=== PATIENT | female | born 1950 | race Caucasian/White ===

== ENCOUNTER 2018-01-10 01:33 | Emergency (ER) | payer MEDICARE ==
[~2018-01-10] VITALS: Ht 175.3 cm; Wt 72.6 kg
[~2018-01-10 01:33] MED LIST: ALPR0.5T PO; ATE50T PO; CYCL1TAB18 PO; LEVO150T10 PO; NOR10T PO; SULF400T11 PO; TRAZ150T79 PO
[2018-01-10 02:53] LABS: Basophils # (auto) 0 uL; Basophils % (auto) 0.1 % (0.0-2.0); Eosinophils # (auto) 0 uL; Eosinophils % (auto) 0.1 % (0.0-7.0); Hematocrit 34.3 % (36.0-46.0); Hemoglobin 10.9 g/dL (12.2-16.2); Lymphocytes # (auto) 0.9 uL; Lymphocytes % (auto) 7.5 % (10.0-50.0); Mean Corpuscular Hgb Conc. 31.9 g/dL (32.0-36.0); Mean Corpuscular Volume 87.9 fL (80.0-100.0); Monocytes # (auto) 0.6 uL; Monocytes % (auto) 4.6 % (0.0-12.0); Neutrophils # (auto) 10.8 uL; Neutrophils % (auto) 87.7 % (37.0-80.0); Platelet Count (auto) 292 10^3/uL (140-450); Red Cell Distribution Width 15.8 % (11.8-14.3); White Blood Cell 12.3 10^3/uL (4.4-10.8)
[2018-01-10] MEDS ORDERED: SODIUM CHLORIDE 0.9% 1,000 ML IV ONE ×2 (03:00→07:31)
[2018-01-10 03:12] LABS: Albumin 3.9 g/dL (3.4-5.0); Anion Gap 6 (5-15); Blood Alcohol < 3.0 mg/dL (0-5); Blood Urea Nitrogen 28 mg/dL (7-18); Calcium 8.7 mg/dL (8.5-10.1); Carbon Dioxide 30 mmol/L (21-32); Chloride 101 mmol/L (98-107); Glucose 111 mg/dL (74-106); Magnesium 2.4 mg/dL (1.6-2.6); Potassium 4.8 mmol/L (3.5-5.1); Sodium 137 mmol/L (136-145)
[2018-01-10 03:18] LABS: Alanine Aminotransferase 20 U/L (13-56); Alkaline Phosphatase 62 U/L (45-117); Aspartate Aminotransferase 9 U/L (15-37); BUN/Creatinine Ratio 15.5; Bilirubin, Total 0.3 mg/dL (0.2-1.0); GFR African American 36 mL/min; GFR Non-African American 29 mL/min; Total Protein 7.2 g/dL (6.4-8.2)
[2018-01-10] MEDS ORDERED: NALOXONE HCL 1MG/ML 2ML SYRINGE IV ONE ×2 (04:00→14:15)
[2018-01-10 11:23] LABS: Urine Bacteria FEW /hpf (None Seen); Urine Blood Negative /uL (Negative); Urine Hyaline Cast MANY /lpf (0 - 2); Urine Mucus FEW (None Seen); Urine Specific Gravity 1.026 (1.001-1.035); Urine WBC 11 /hpf (0 - 5)
[2018-01-10 11:31] LABS: Alcohol, Urine < 3.0 mg/dL (0-5); Amphetamine Screen, Urine NEGATIVE (NEGATIVE); Barbiturate Scree,Urine NEGATIVE (NEGATIVE); Benzodiazephine Screen, Urine NEGATIVE (NEGATIVE); Cannabinoid Screen, Urine POSITIVE (NEGATIVE); Cocaine Screen, Urine NEGATIVE (NEGATIVE); Opiate Scree,Urine POSITIVE (NEGATIVE); Phencyclidine Screen, Urine NEGATIVE (NEGATIVE)
[2018-01-10] MEDS ORDERED: cefTRIAXone 1GM/50ML D5W 50 ML IV ONE (11:45)
[2018-01-10 16:30] VITALS: BP 164/88
== END 2018-01-10 18:07 | disposition home or self-care (01) ==
LOC: EDBD 01:33 → ER 01:49
DX: T40.601A Poisoning by unspecified narcotics, accidental (unintentional), initial encounter (principal); I12.9 Hypertensive chronic kidney disease with stage 1 through stage 4 chronic kidney disease, or unspecified chronic kidney disease; N18.4 Chronic kidney disease, stage 4 (severe); N39.0 Urinary tract infection, site not specified; G89.4 Chronic pain syndrome; J44.9 Chronic obstructive pulmonary disease, unspecified; E07.9 Disorder of thyroid, unspecified; F17.210 Nicotine dependence, cigarettes, uncomplicated; Z90.710 Acquired absence of both cervix and uterus; Z79.899 Other long term (current) drug therapy; Z87.442 Personal history of urinary calculi; Y92.89 Other specified places as the place of occurrence of the external cause
CPT/HCPCS: 36415; 70450; 71046; 74176; 80053; 80307; 80320; 81001; 83735; 83880; 84443; 84484; 85025; 93005; 94761; 96361; 96365; 96375; 99284; J0696; J2310; J7030

== ENCOUNTER 2018-01-11 15:30 | Inpatient (IN) | payer MEDICARE ==
[~2018-01-11] VITALS: Ht 170.2 cm; Wt 85.0 kg
[2018-01-11] MEDS ORDERED: EPINEPHrine HCL 1 MG/10 ML SYRG IV ONE (15:34)
[2018-01-11] MEDS ORDERED: ATROPINE SULF 1 MG/10ml SYR IV ONE ×2 (15:34→16:45)
[2018-01-11] MEDS ORDERED: SUCCINYLCHOLINE CHLORIDE 20 MG/ML 10ML VIAL IV ONE ×2 (15:35→15:36)
[2018-01-11] MEDS ORDERED: ETOMIDATE (2MG/ML) 20ML VIAL IV ONE ×2 (15:35→15:36)
[2018-01-11] MEDS ORDERED: MIDAZOLAM DRIP 50 mg/50mL 50 ML IV ONE (15:37)
[2018-01-11] MEDS ORDERED: NOREPINEPHRINE 8 MG/250ML KIT 250 ML IV ONE (15:44)
[2018-01-11] MEDS: MIDAZOLAM DRIP 50 mg/50mL 50 ML IV SCH (15:44)
[2018-01-11] MEDS ORDERED: SODIUM CHLORIDE 0.9% 2,000 ML IV ONE (15:45)
[2018-01-11] MEDS: NOREPINEPHRINE 8 MG/250ML KIT 250 ML IV SCH (15:45)
[2018-01-11] MEDS ORDERED: NALOXONE HCL 1MG/ML 2ML SYRINGE ONE (15:56)
[2018-01-11] MEDS ORDERED: NALOXONE HCL 1MG/ML 2ML SYRINGE IV ONE (15:58)
[2018-01-11] MEDS ORDERED: cefTRIAXone 1GM/50ML D5W 50 ML IV ONE ×2 (16:00→16:20)
[2018-01-11] MEDS ORDERED: ATROPINE SULF 0.5 MG/5ML SYR ONE (16:41)
[2018-01-11 16:43] LABS: Basophils # (auto) 0.1 uL; Basophils % (auto) 0.3 % (0.0-2.0); Eosinophils # (auto) 0.1 uL; Eosinophils % (auto) 0.4 % (0.0-7.0); Hematocrit 30.1 % (36.0-46.0); Hemoglobin 9.5 g/dL (12.2-16.2); Lymphocytes # (auto) 1.5 uL; Lymphocytes % (auto) 7.3 % (10.0-50.0); Mean Corpuscular Hemoglobin 28.4 pg (28.0-32.0); Mean Corpuscular Hgb Conc. 31.4 g/dL (32.0-36.0); Mean Corpuscular Volume 90.3 fL (80.0-100.0); Monocytes # (auto) 0.9 uL; Monocytes % (auto) 4.2 % (0.0-12.0); Neutrophils # (auto) 18.2 uL; Neutrophils % (auto) 87.8 % (37.0-80.0); Platelet Count (auto) 275 10^3/uL (140-450); Red Blood Cells 3.34 10^6/uL (4.0-5.20); Red Cell Distribution Width 16.2 % (11.8-14.3); White Blood Cell 20.7 10^3/uL (4.4-10.8)
[2018-01-11 16:52] LABS: Alanine Aminotransferase 72 U/L (13-56); Albumin 2.8 g/dL (3.4-5.0); Anion Gap 21 (5-15); Aspartate Aminotransferase 145 U/L (15-37); BUN/Creatinine Ratio 12.2; Blood Alcohol < 3.0 mg/dL (0-5); Blood Urea Nitrogen 38 mg/dL (7-18); Calcium 7.8 mg/dL (8.5-10.1); Carbon Dioxide 16 mmol/L (21-32); Chloride 100 mmol/L (98-107); GFR African American 19 mL/min; GFR Non-African American 16 mL/min; Glucose 118 mg/dL (74-106); Magnesium 2.7 mg/dL (1.6-2.6); Sodium 137 mmol/L (136-145)
[2018-01-11 16:56] LABS: Alkaline Phosphatase 60 U/L (45-117); Bilirubin, Total 0.9 mg/dL (0.2-1.0); Lactic Acid w/Reflex 7.7 mmol/L (0.4-2.0); Total Protein 5.7 g/dL (6.4-8.2)
[2018-01-11 17:16] LABS: Potassium 6.2 mmol/L (3.5-5.1)
[2018-01-11] MEDS ORDERED: SODIUM CHLORIDE 0.9% 1,000 ML IV ONE (18:15)
[2018-01-11 18:42] VITALS: BP 123/55
[2018-01-11 19:04] VITALS: BP 123/55
[2018-01-11 20:15] VITALS: BP 160/82
[2018-01-11] MEDS ORDERED: DEXTROSE (50%) 50ML SYRG IV ONE (20:45)
[2018-01-11] MEDS ORDERED: PANTOPRAZOLE 40 MG/10 ML VIAL IV ONE (20:45)
[2018-01-11] MEDS ORDERED: CALCIUM GLUC 4.65meq/50ml D5AE 50 ML IV ONE (20:45)
[2018-01-11] MEDS ORDERED: MORPHINE SULFATE 4 MG/ML SYR/VIAL IV PRN (20:45)
[2018-01-11] MEDS ORDERED: SODIUM POLYSTYRENE SULF 15 GM POWDER PO ONE ×2 (20:45→21:30)
[2018-01-11] MEDS ORDERED: NITROGLYCERIN 0.4 MG SL TAB SL PRN (20:45)
[2018-01-11] MEDS ORDERED: InsuLIN REG 1unit/0.01ml Soln (100units/ml) IV ONE (20:45)
[2018-01-11] MEDS ORDERED: ONDANSETRON HCL 4 MG/2 ML VIAL IV PRN (20:45)
[2018-01-11] MEDS ORDERED: VANCOMYCIN PER PHARMACY 0 MG IV SCH (20:45)
[2018-01-11 21:20] LABS: Alcohol, Urine < 3.0 mg/dL (0-5); Amphetamine Screen, Urine NEGATIVE (NEGATIVE); Barbiturate Scree,Urine NEGATIVE (NEGATIVE); Benzodiazephine Screen, Urine POSITIVE (NEGATIVE); Cannabinoid Screen, Urine POSITIVE (NEGATIVE); Cocaine Screen, Urine NEGATIVE (NEGATIVE); Opiate Scree,Urine POSITIVE (NEGATIVE); Phencyclidine Screen, Urine NEGATIVE (NEGATIVE)
[2018-01-11] MEDS: SODIUM CHLORIDE 0.9% 1,000 ML IV SCH (21:31)
[2018-01-11] MEDS ORDERED: VANCOMYCIN 1GM/250ML 250 ML IV ONE (21:45)
[2018-01-11 21:49] LABS: INR 1.11 (0.9-1.15); Partial Thromboplastin Time 27.7 sec (23.78-33.04); Prothrombin Time 11.8 sec (9.27-12.13)
[2018-01-11] MEDS: PIPERACILLIN-TAZOB 2.25GM 50 ML IV SCH (22:00)
[2018-01-12] VITALS (99 sets, daily range): BP systolic 85–168; BP diastolic 49–95
[2018-01-12 04:12] LABS: Basophils # (auto) 0 uL; Basophils % (auto) 0.1 % (0.0-2.0); Eosinophils # (auto) 0 uL; Eosinophils % (auto) 0.2 % (0.0-7.0); Hematocrit 26.8 % (36.0-46.0); Hemoglobin 8.6 g/dL (12.2-16.2); Lymphocytes # (auto) 0.8 uL; Lymphocytes % (auto) 5.8 % (10.0-50.0); Mean Corpuscular Hemoglobin 28.4 pg (28.0-32.0); Mean Corpuscular Volume 88.7 fL (80.0-100.0); Monocytes # (auto) 0.4 uL; Monocytes % (auto) 3.2 % (0.0-12.0); Neutrophils # (auto) 11.8 uL; Neutrophils % (auto) 90.7 % (37.0-80.0); Platelet Count (auto) 218 10^3/uL (140-450); Red Blood Cells 3.02 10^6/uL (4.0-5.20); Red Cell Distribution Width 15.7 % (11.8-14.3); White Blood Cell 13.1 10^3/uL (4.4-10.8)
[2018-01-12 04:28] LABS: Albumin 2.4 g/dL (3.4-5.0); BUN/Creatinine Ratio 17.8; Calcium 7.5 mg/dL (8.5-10.1); Potassium 4.3 mmol/L (3.5-5.1)
[2018-01-12 04:33] LABS: Bilirubin, Total 0.6 mg/dL (0.2-1.0); Total Protein 5.1 g/dL (6.4-8.2)
[2018-01-12] MEDS: PIPERACILLIN-TAZOB 2.25GM 50 ML IV SCH ×3 (06:19→21:18)
[2018-01-12] MEDS: SODIUM CHLORIDE 0.9% 1,000 ML IV SCH ×2 (07:50→12:52)
[2018-01-12] MEDS: MIDAZOLAM DRIP 50 mg/50mL 50 ML IV SCH ×4 (08:48→21:14)
[2018-01-12] MEDS: PANTOPRAZOLE 40 MG/10 ML VIAL IV SCH (09:44)
[2018-01-12] MEDS ORDERED: SODIUM BICARBONATE 8.4 % INJ 50ML VIAL IV ONE (09:45)
[2018-01-12] MEDS ORDERED: ASPirin 81 mg TAB PO SCH (10:00)
[2018-01-12 13:05] LABS: Urine Bacteria FEW /hpf (None Seen); Urine Blood 1+ /uL (Negative); Urine Specific Gravity 1.011 (1.001-1.035); Urine WBC 1 /hpf (0 - 5)
[2018-01-12] MEDS ORDERED: ENOXAPARIN SOD 100 MG/1 ML SYRINGE SC ONE (13:15)
[2018-01-12 13:23] LABS: Protein, Urine 28.3 mg/dL (0.0-11.9)
[2018-01-12 15:10] LABS: Lactic Acid w/Reflex 2.7 mmol/L (0.4-2.0)
[2018-01-12] MEDS: NOREPINEPHRINE 8 MG/250ML KIT 250 ML IV SCH (16:30)
[2018-01-12 19:22] LABS: BUN/Creatinine Ratio 16.2; Calcium 7.3 mg/dL (8.5-10.1); Potassium 4.2 mmol/L (3.5-5.1)
[2018-01-12] MEDS: ALBUTEROL SULF 2.5 MG/0.5ML(0.5%) NEB SOLN NEB SCH (19:24)
[2018-01-12] MEDS: IPRATROPIUM BROM 0.5 MG/2.5ML INH SOL NEB SCH (19:24)
[2018-01-12] MEDS ORDERED: SODIUM CHLORIDE 0.9% 1,000 ML IV ONE (20:30)
[2018-01-12] MEDS ORDERED: ACETAMINOPHEN 650 mg PER 20 mL UD GT PRN (20:30)
[2018-01-12] MEDS: methylPREDNISolone SOD SUCC 40 MG/ML VL IV SCH (21:19)
[2018-01-12] MEDS: ATORVASTATIN 20 MG TAB PO SCH (21:50)
[2018-01-13] VITALS (79 sets, daily range): BP systolic 74–181; BP diastolic 51–97
[2018-01-13] MEDS: IPRATROPIUM BROM 0.5 MG/2.5ML INH SOL NEB SCH ×6 (03:02→22:18)
[2018-01-13] MEDS: ALBUTEROL SULF 2.5 MG/0.5ML(0.5%) NEB SOLN NEB SCH ×6 (03:02→22:18)
[2018-01-13] MEDS: MIDAZOLAM DRIP 50 mg/50mL 50 ML IV SCH ×4 (03:46→17:58)
[2018-01-13] MEDS: SODIUM CHLORIDE 0.9% 1,000 ML IV SCH ×2 (03:47→15:00)
[2018-01-13 04:09] LABS: Basophils # (auto) 0 uL; Basophils % (auto) 0.1 % (0.0-2.0); Eosinophils # (auto) 0 uL; Eosinophils % (auto) 0.2 % (0.0-7.0); Hematocrit 25.6 % (36.0-46.0); Hemoglobin 8.5 g/dL (12.2-16.2); Lymphocytes # (auto) 0.3 uL; Mean Corpuscular Hemoglobin 29.1 pg (28.0-32.0); Mean Corpuscular Hgb Conc. 33.1 g/dL (32.0-36.0); Monocytes # (auto) 0.1 uL; Monocytes % (auto) 1.9 % (0.0-12.0); Neutrophils # (auto) 6.9 uL; Neutrophils % (auto) 93.8 % (37.0-80.0); Platelet Count (auto) 168 10^3/uL (140-450); Red Blood Cells 2.91 10^6/uL (4.0-5.20); Red Cell Distribution Width 15.8 % (11.8-14.3); White Blood Cell 7.3 10^3/uL (4.4-10.8)
[2018-01-13 04:26] LABS: Albumin 2.4 g/dL (3.4-5.0); Calcium 7.5 mg/dL (8.5-10.1); Magnesium 1.8 mg/dL (1.6-2.6); Potassium 4.3 mmol/L (3.5-5.1)
[2018-01-13 04:32] LABS: Bilirubin, Total 0.7 mg/dL (0.2-1.0); Phosphorus 2.8 mg/dL (2.5-4.90); Total Protein 5.3 g/dL (6.4-8.2)
[2018-01-13] MEDS: PIPERACILLIN-TAZOB 2.25GM 50 ML IV SCH ×3 (06:01→22:29)
[2018-01-13] MEDS: ASPirin 81 mg TAB PO SCH (09:43)
[2018-01-13] MEDS: methylPREDNISolone SOD SUCC 40 MG/ML VL IV SCH ×2 (09:43→22:29)
[2018-01-13] MEDS: PANTOPRAZOLE 40 MG/10 ML VIAL IV SCH (09:43)
[2018-01-13] MEDS ORDERED: MORPHINE SULFATE 4 MG/ML SYR/VIAL IV PRN (12:15)
[2018-01-13] MEDS ORDERED: VANCOMYCIN 1GM/250ML 250 ML IV ONE (13:00)
[2018-01-13] MEDS: fentaNYL Drip 2500mCg/250mlNS 250 ML IV SCH (14:24)
[2018-01-13] MEDS: NOREPINEPHRINE 8 MG/250ML KIT 250 ML IV SCH (16:30)
[2018-01-13] MEDS: ATORVASTATIN 20 MG TAB PO SCH (22:29)
[2018-01-14] VITALS (107 sets, daily range): BP systolic 102–155; BP diastolic 51–92
[2018-01-14] MEDS: IPRATROPIUM BROM 0.5 MG/2.5ML INH SOL NEB SCH ×6 (02:21→22:09)
[2018-01-14] MEDS: ALBUTEROL SULF 2.5 MG/0.5ML(0.5%) NEB SOLN NEB SCH ×6 (02:21→22:09)
[2018-01-14 04:01] LABS: Basophils # (auto) 0 uL; Eosinophils # (auto) 0 uL; Hematocrit 22.3 % (36.0-46.0); Hemoglobin 7.3 g/dL (12.2-16.2); Lymphocytes # (auto) 0.1 uL; Lymphocytes % (auto) 2.5 % (10.0-50.0); Mean Corpuscular Hemoglobin 28.7 pg (28.0-32.0); Mean Corpuscular Hgb Conc. 32.7 g/dL (32.0-36.0); Mean Corpuscular Volume 87.8 fL (80.0-100.0); Monocytes # (auto) 0.1 uL; Monocytes % (auto) 1.5 % (0.0-12.0); Neutrophils # (auto) 5.6 uL; Platelet Count (auto) 161 10^3/uL (140-450); Red Blood Cells 2.54 10^6/uL (4.0-5.20); Red Cell Distribution Width 15.8 % (11.8-14.3); White Blood Cell 5.9 10^3/uL (4.4-10.8)
[2018-01-14 04:24] LABS: Albumin 2.2 g/dL (3.4-5.0); BUN/Creatinine Ratio 12.3; Calcium 7.4 mg/dL (8.5-10.1); Potassium 3.8 mmol/L (3.5-5.1)
[2018-01-14 04:27] LABS: Bilirubin, Total 0.4 mg/dL (0.2-1.0); Total Protein 4.9 g/dL (6.4-8.2)
[2018-01-14] MEDS: SODIUM CHLORIDE 0.9% 1,000 ML IV SCH ×2 (05:00→08:45)
[2018-01-14] MEDS: fentaNYL Drip 2500mCg/250mlNS 250 ML IV SCH ×2 (05:30→17:50)
[2018-01-14] MEDS: PIPERACILLIN-TAZOB 2.25GM 50 ML IV SCH ×3 (06:00→22:00)
[2018-01-14] MEDS: MIDAZOLAM DRIP 50 mg/50mL 50 ML IV SCH (06:58)
[2018-01-14] MEDS: ENOXAPARIN SOD 30 MG/0.3 ML SYRINGE SC SCH (10:00)
[2018-01-14] MEDS: ASPirin 81 mg TAB PO SCH ×2 (10:00→10:01)
[2018-01-14] MEDS: PANTOPRAZOLE 40 MG/10 ML VIAL IV SCH (10:01)
[2018-01-14] MEDS: methylPREDNISolone SOD SUCC 40 MG/ML VL IV SCH ×2 (10:01→22:00)
[2018-01-14] MEDS ORDERED: VANCOMYCIN HCL 500MG/5ML ORAL SOL PO SCH (12:00)
[2018-01-14] MEDS ORDERED: VANCOMYCIN 1GM/250ML 250 ML IV SCH (13:00)
[2018-01-14] MEDS: SOD CHL 0.9%/ KCL 20MEQ 1,000 ML IV SCH ×2 (13:07→20:45)
[2018-01-14] MEDS: metroNIDAZOLE 500 MG TAB PO SCH ×2 (14:02→22:00)
[2018-01-14] MEDS: NOREPINEPHRINE 8 MG/250ML KIT 250 ML IV SCH (16:30)
[2018-01-14] MEDS: FREE WATER GT SCH (17:50)
[2018-01-14] MEDS: VANCOMYCIN HCL 125MG/5ML ORAL SOL PO SCH ×2 (17:54→22:00)
[2018-01-14] MEDS: ATORVASTATIN 20 MG TAB PO SCH (22:00)
[2018-01-15] VITALS (106 sets, daily range): BP systolic 125–241; BP diastolic 63–133
[2018-01-15] MEDS: IPRATROPIUM BROM 0.5 MG/2.5ML INH SOL NEB SCH ×6 (01:58→22:55)
[2018-01-15] MEDS: ALBUTEROL SULF 2.5 MG/0.5ML(0.5%) NEB SOLN NEB SCH ×6 (01:58→22:55)
[2018-01-15 03:42] LABS: Basophils # (auto) 0 uL; Basophils % (auto) 0.1 % (0.0-2.0); Eosinophils # (auto) 0 uL; Hematocrit 28.9 % (36.0-46.0); Hemoglobin 9.6 g/dL (12.2-16.2); Lymphocytes # (auto) 0.3 uL; Lymphocytes % (auto) 2.7 % (10.0-50.0); Mean Corpuscular Hemoglobin 29.2 pg (28.0-32.0); Mean Corpuscular Volume 88.4 fL (80.0-100.0); Monocytes # (auto) 0.4 uL; Monocytes % (auto) 3.3 % (0.0-12.0); Neutrophils # (auto) 10.7 uL; Neutrophils % (auto) 93.9 % (37.0-80.0); Platelet Count (auto) 172 10^3/uL (140-450); Red Blood Cells 3.28 10^6/uL (4.0-5.20); Red Cell Distribution Width 15.9 % (11.8-14.3); White Blood Cell 11.4 10^3/uL (4.4-10.8)
[2018-01-15 04:00] LABS: Albumin 2.3 g/dL (3.4-5.0); Calcium 7.8 mg/dL (8.5-10.1)
[2018-01-15 04:06] LABS: Bilirubin, Total 0.5 mg/dL (0.2-1.0); Total Protein 5.2 g/dL (6.4-8.2)
[2018-01-15] MEDS: metroNIDAZOLE 500 MG TAB PO SCH ×3 (06:00→22:13)
[2018-01-15] MEDS: FREE WATER GT SCH ×5 (06:00→22:17)
[2018-01-15] MEDS: PIPERACILLIN-TAZOB 2.25GM 50 ML IV SCH ×3 (06:00→22:13)
[2018-01-15] MEDS: VANCOMYCIN HCL 125MG/5ML ORAL SOL PO SCH ×4 (06:00→22:13)
[2018-01-15] MEDS: fentaNYL Drip 2500mCg/250mlNS 250 ML IV SCH (07:35)
[2018-01-15] MEDS: SOD CHL 0.9%/ KCL 20MEQ 1,000 ML IV SCH ×3 (08:52→19:15)
[2018-01-15] MEDS: methylPREDNISolone SOD SUCC 40 MG/ML VL IV SCH ×2 (08:59→22:13)
[2018-01-15] MEDS: PANTOPRAZOLE 40 MG/10 ML VIAL IV SCH (09:00)
[2018-01-15] MEDS: ASPirin 81 mg TAB PO SCH (10:00)
[2018-01-15] MEDS: ENOXAPARIN SOD 30 MG/0.3 ML SYRINGE SC SCH (10:00)
[2018-01-15] MEDS: METOPROLOL TARTRATE 1MG/1ML-5ML VIAL IV PRN ×2 (10:31→14:18)
[2018-01-15] MEDS ORDERED: fentaNYL CITRATE 100 MCG/2 ML VL IV PRN ×2 (12:45)
[2018-01-15] MEDS: MIDAZOLAM DRIP 50 mg/50mL 50 ML IV SCH (16:27)
[2018-01-15] MEDS: NOREPINEPHRINE 8 MG/250ML KIT 250 ML IV SCH (16:30)
[2018-01-15] MEDS: NICARDIPINE 25MG/250ML BAG KIT 250 ML IV SCH ×2 (17:59→21:32)
[2018-01-15] MEDS: MORPHINE SULFATE 4 MG/ML SYR/VIAL IV PRN (20:01)
[2018-01-15] MEDS: ATORVASTATIN 20 MG TAB PO SCH (22:13)
[2018-01-16] VITALS (107 sets, daily range): BP systolic 83–163; BP diastolic 35–122
[2018-01-16] MEDS: NICARDIPINE 25MG/250ML BAG KIT 250 ML IV SCH ×5 (00:52→22:57)
[2018-01-16] MEDS: SOD CHL 0.9%/ KCL 20MEQ 1,000 ML IV SCH (00:53)
[2018-01-16] MEDS: MORPHINE SULFATE 4 MG/ML SYR/VIAL IV PRN ×2 (02:05→14:51)
[2018-01-16] MEDS: IPRATROPIUM BROM 0.5 MG/2.5ML INH SOL NEB SCH ×7 (02:19→22:06)
[2018-01-16] MEDS: ALBUTEROL SULF 2.5 MG/0.5ML(0.5%) NEB SOLN NEB SCH ×7 (02:19→22:06)
[2018-01-16 04:17] LABS: Albumin 2.6 g/dL (3.4-5.0); Potassium 4.6 mmol/L (3.5-5.1)
[2018-01-16 04:19] LABS: BUN/Creatinine Ratio 16.1
[2018-01-16 04:21] LABS: Bilirubin, Total 0.4 mg/dL (0.2-1.0); Total Protein 5.9 g/dL (6.4-8.2)
[2018-01-16] MEDS: VANCOMYCIN HCL 125MG/5ML ORAL SOL PO SCH ×4 (06:00→21:42)
[2018-01-16] MEDS: FREE WATER GT SCH ×4 (06:00→23:36)
[2018-01-16] MEDS: metroNIDAZOLE 500 MG TAB PO SCH ×3 (06:00→21:42)
[2018-01-16] MEDS: PIPERACILLIN-TAZOB 2.25GM 50 ML IV SCH ×3 (06:00→21:42)
[2018-01-16] MEDS: methylPREDNISolone SOD SUCC 40 MG/ML VL IV SCH ×2 (10:01→21:42)
[2018-01-16] MEDS: ASPirin 81 mg TAB PO SCH (10:01)
[2018-01-16] MEDS: PANTOPRAZOLE 40 MG/10 ML VIAL IV SCH (10:01)
[2018-01-16] MEDS: ENOXAPARIN SOD 30 MG/0.3 ML SYRINGE SC SCH (10:01)
[2018-01-16] MEDS: fentaNYL Drip 2500mCg/250mlNS 250 ML IV SCH (12:26)
[2018-01-16] MEDS: SODIUM BICARBONATE 50ML VIAL 50 ML in D5W/SOD CHL 0.45% 1,000 ML IV SCH (13:17)
[2018-01-16] MEDS: MIDAZOLAM DRIP 50 mg/50mL 50 ML IV SCH (16:27)
[2018-01-16] MEDS: NOREPINEPHRINE 8 MG/250ML KIT 250 ML IV SCH (16:30)
[2018-01-16] MEDS: ATORVASTATIN 20 MG TAB PO SCH (21:44)
[2018-01-17] VITALS (96 sets, daily range): BP systolic 105–175; BP diastolic 49–104
[2018-01-17] MEDS: IPRATROPIUM BROM 0.5 MG/2.5ML INH SOL NEB SCH ×6 (02:03→22:38)
[2018-01-17] MEDS: ALBUTEROL SULF 2.5 MG/0.5ML(0.5%) NEB SOLN NEB SCH ×6 (02:03→22:38)
[2018-01-17] MEDS: fentaNYL Drip 2500mCg/250mlNS 250 ML IV SCH ×2 (02:04→18:12)
[2018-01-17] MEDS: SODIUM BICARBONATE 50ML VIAL 50 ML in D5W/SOD CHL 0.45% 1,000 ML IV SCH ×2 (02:07→15:23)
[2018-01-17] MEDS: NICARDIPINE 25MG/250ML BAG KIT 250 ML IV SCH ×3 (03:32→13:38)
[2018-01-17] MEDS: metroNIDAZOLE 500 MG TAB PO SCH (05:34)
[2018-01-17] MEDS: FREE WATER GT SCH ×3 (05:34→18:10)
[2018-01-17] MEDS: PIPERACILLIN-TAZOB 2.25GM 50 ML IV SCH ×3 (05:34→22:03)
[2018-01-17] MEDS: PANTOPRAZOLE 40 MG/10 ML VIAL IV SCH (09:53)
[2018-01-17] MEDS: ENOXAPARIN SOD 30 MG/0.3 ML SYRINGE SC SCH (09:54)
[2018-01-17] MEDS: ASPirin 81 mg TAB PO SCH (09:54)
[2018-01-17] MEDS: methylPREDNISolone SOD SUCC 40 MG/ML VL IV SCH ×2 (09:54→22:04)
[2018-01-17] MEDS: VANCOMYCIN HCL 125MG/5ML ORAL SOL PO SCH ×3 (11:51→22:19)
[2018-01-17] MEDS ORDERED: hydrALAZINE HCL 20 MG/ML VL IV PRN (13:45)
[2018-01-17] MEDS: MICAFUNGIN SODIUM 100 MG in SODIUM CHL 0.9% 100 ML IV SCH (15:05)
[2018-01-17] MEDS: MIDAZOLAM DRIP 50 mg/50mL 50 ML IV SCH ×2 (16:27→21:19)
[2018-01-17] MEDS: NOREPINEPHRINE 8 MG/250ML KIT 250 ML IV SCH (16:30)
[2018-01-17] MEDS: ATORVASTATIN 20 MG TAB PO SCH (22:04)
[2018-01-18] VITALS (94 sets, daily range): BP systolic 112–182; BP diastolic 17–114
[2018-01-18] MEDS: FREE WATER GT SCH ×4 (00:08→18:05)
[2018-01-18] MEDS: IPRATROPIUM BROM 0.5 MG/2.5ML INH SOL NEB SCH ×3 (02:23→10:13)
[2018-01-18] MEDS: ALBUTEROL SULF 2.5 MG/0.5ML(0.5%) NEB SOLN NEB SCH ×3 (02:23→10:13)
[2018-01-18] MEDS: fentaNYL Drip 2500mCg/250mlNS 250 ML IV SCH ×2 (03:07→14:11)
[2018-01-18] MEDS: SODIUM BICARBONATE 50ML VIAL 50 ML in D5W/SOD CHL 0.45% 1,000 ML IV SCH ×2 (03:24→18:05)
[2018-01-18 04:20] LABS: Albumin 2.7 g/dL (3.4-5.0); BUN/Creatinine Ratio 12.1; Bilirubin, Total 0.5 mg/dL (0.2-1.0); Calcium 7.7 mg/dL (8.5-10.1); Total Protein 5.6 g/dL (6.4-8.2)
[2018-01-18] MEDS: PIPERACILLIN-TAZOB 2.25GM 50 ML IV SCH ×3 (05:59→22:00)
[2018-01-18] MEDS: VANCOMYCIN HCL 125MG/5ML ORAL SOL PO SCH ×4 (06:00→22:00)
[2018-01-18] MEDS: MIDAZOLAM DRIP 50 mg/50mL 50 ML IV SCH (07:32)
[2018-01-18] MEDS: NICARDIPINE 25MG/250ML BAG KIT 250 ML IV SCH (09:32)
[2018-01-18] MEDS: methylPREDNISolone SOD SUCC 40 MG/ML VL IV SCH ×2 (09:43→22:00)
[2018-01-18] MEDS: MICAFUNGIN SODIUM 100 MG in SODIUM CHL 0.9% 100 ML IV SCH (09:44)
[2018-01-18] MEDS: ENOXAPARIN SOD 30 MG/0.3 ML SYRINGE SC SCH (09:44)
[2018-01-18] MEDS: ASPirin 81 mg TAB PO SCH (09:44)
[2018-01-18] MEDS: PANTOPRAZOLE 40 MG/10 ML VIAL IV SCH (09:44)
[2018-01-18] MEDS ORDERED: MORPHINE SULFATE 10 MG/ML INJ 1ML SDV IV ONE (12:15)
[2018-01-18] MEDS: LORazepam 2MG/ML-1ML VIAL IV PRN ×9 (13:14→23:23)
[2018-01-18] MEDS: MORPHINE SULFATE 4 MG/ML SYR/VIAL IV PRN ×12 (13:47→23:59)
[2018-01-18] MEDS: MORPHINE SULFATE 100 MG in D5W 5% 90 ML IV SCH ×2 (14:45→15:44)
[2018-01-18] MEDS: NOREPINEPHRINE 8 MG/250ML KIT 250 ML IV SCH (16:30)
[2018-01-18] MEDS: ATORVASTATIN 20 MG TAB PO SCH (22:00)
[2018-01-19] VITALS (36 sets, daily range): BP systolic 121–198; BP diastolic 54–121
[2018-01-19] MEDS: LORazepam 2MG/ML-1ML VIAL IV PRN ×12 (00:33→22:51)
[2018-01-19] MEDS: MORPHINE SULFATE 4 MG/ML SYR/VIAL IV PRN ×6 (00:33→09:38)
[2018-01-19] MEDS: SODIUM BICARBONATE 50ML VIAL 50 ML in D5W/SOD CHL 0.45% 1,000 ML IV SCH (05:40)
[2018-01-19] MEDS: FREE WATER GT SCH ×2 (05:54)
[2018-01-19] MEDS: PIPERACILLIN-TAZOB 2.25GM 50 ML IV SCH (05:54)
[2018-01-19] MEDS: VANCOMYCIN HCL 125MG/5ML ORAL SOL PO SCH (05:55)
[2018-01-19] MEDS ORDERED: MORPHINE SULFATE 10 MG/ML INJ 1ML SDV IV PRN ×2 (11:00→11:15)
[2018-01-19] MEDS ORDERED: LORazepam 2MG/ML-1ML VIAL IV PRN (12:15)
[2018-01-19] MEDS ORDERED: MORPHINE SULFATE 4 MG/ML SYR/VIAL IV PRN ×2 (12:15→12:30)
[2018-01-19] MEDS: HYDROmorphone HCL 2 MG/ML VL IV PRN ×4 (14:11→18:42)
[2018-01-19] MEDS ORDERED: HYDROmorphone HCL 2 MG/ML VL IV ONE (18:45)
[2018-01-20] MEDS: LORazepam 2MG/ML-1ML VIAL IV PRN ×11 (00:52→23:09)
[2018-01-20] MEDS: HYDROmorphone HCL 2 MG/ML VL IV PRN ×11 (00:53→23:09)
[2018-01-20 05:12] VITALS: BP 198/110
[2018-01-20 09:02] VITALS: BP 188/97
[2018-01-20 13:00] VITALS: BP 213/105
[2018-01-20 17:00] VITALS: BP 171/95
[2018-01-20 21:57] VITALS: BP 162/96
[2018-01-21] MEDS: HYDROmorphone HCL 2 MG/ML VL IV PRN ×8 (01:30→20:50)
[2018-01-21] MEDS: LORazepam 2MG/ML-1ML VIAL IV PRN ×8 (01:30→20:50)
[2018-01-21 05:44] VITALS: BP 181/92
[2018-01-21 09:00] VITALS: BP 204/96
[2018-01-21 13:00] VITALS: BP 178/103
[2018-01-21 17:00] VITALS: BP 156/79
[2018-01-21 22:00] VITALS: BP 179/93
[2018-01-22] MEDS: LORazepam 2MG/ML-1ML VIAL IV PRN ×14 (00:08→23:34)
[2018-01-22] MEDS: HYDROmorphone HCL 2 MG/ML VL IV PRN ×14 (00:09→23:34)
[2018-01-22 05:17] VITALS: BP 169/74
[2018-01-22 09:00] VITALS: BP 165/89
[2018-01-22 13:00] VITALS: BP 163/91
[2018-01-22 17:00] VITALS: BP 178/90
[2018-01-22 21:34] VITALS: BP 153/86
[2018-01-23] MEDS: HYDROmorphone HCL 2 MG/ML VL IV PRN ×6 (01:04→11:39)
[2018-01-23] MEDS: LORazepam 2MG/ML-1ML VIAL IV PRN ×5 (01:04→07:08)
[2018-01-23 05:03] VITALS: BP 173/81
[2018-01-23 08:12] VITALS: BP 146/85
[2018-01-23 09:04] VITALS: BP 161/74
== END 2018-01-23 11:45 | disposition hospice, home (50) | DRG 870 ==
LOC: EDBD 15:30 → ER 15:33 → TELE 20:59 → ICU WEST 22:15 → CENTRAL 01-19 12:58
PROVIDERS: ADMIT Nurse Practitioner; ATTEND Internal Medicine
PROC: 5A1955Z Respiratory Ventilation, Greater than 96 Consecutive Hours (ICD-10-PCS; principal; 2018-01-11)
PROC: 0BH18EZ Insertion of Endotracheal Airway into Trachea, Via Natural or Artificial Opening Endoscopic (ICD-10-PCS; 2018-01-11)
PROC: 02HV33Z Insertion of Infusion Device into Superior Vena Cava, Percutaneous Approach (ICD-10-PCS; 2018-01-11)
PROC: 5A12012 Performance of Cardiac Output, Single, Manual (ICD-10-PCS; 2018-01-11)
PROC: 30233N1 Transfusion of Nonautologous Red Blood Cells into Peripheral Vein, Percutaneous Approach (ICD-10-PCS; 2018-01-14)
DX: A41.9 Sepsis, unspecified organism (principal); N17.0 Acute kidney failure with tubular necrosis; J96.21 Acute and chronic respiratory failure with hypoxia; I46.9 Cardiac arrest, cause unspecified; G93.41 Metabolic encephalopathy; I50.31 Acute diastolic (congestive) heart failure; I21.4 Non-ST elevation (NSTEMI) myocardial infarction; J69.0 Pneumonitis due to inhalation of food and vomit; J44.1 Chronic obstructive pulmonary disease with (acute) exacerbation; R57.9 Shock, unspecified; A04.72 Enterocolitis due to Clostridium difficile, not specified as recurrent; N39.0 Urinary tract infection, site not specified; G93.1 Anoxic brain damage, not elsewhere classified; I13.0 Hypertensive heart and chronic kidney disease with heart failure and stage 1 through stage 4 chronic kidney disease, or unspecified chronic kidney disease; T40.2X1A Poisoning by other opioids, accidental (unintentional), initial encounter; I70.0 Atherosclerosis of aorta; E66.9 Obesity, unspecified; E87.5 Hyperkalemia; F41.9 Anxiety disorder, unspecified; G89.4 Chronic pain syndrome; N18.9 Chronic kidney disease, unspecified; D64.9 Anemia, unspecified; Z51.5 Encounter for palliative care; M54.5 Low back pain; Y92.89 Other specified places as the place of occurrence of the external cause; Z80.1 Family history of malignant neoplasm of trachea, bronchus and lung; Z79.899 Other long term (current) drug therapy; Z79.82 Long term (current) use of aspirin; Z90.710 Acquired absence of both cervix and uterus; Z68.29 Body mass index [BMI] 29.0-29.9, adult
CPT/HCPCS: 31500; 36415; 36556; 36600; 70450; 71045; 71046; 74176; 80048; 80053; 80061; 80202; 80307; 80320; 81001; 82270; 82570; 82805; 82962; 83036; 83540; 83550; 83605; 83735; 83880; 84100; 84132; 84156; 84300; 84443; 84484; 85025; 85379; 85610; 85730; 86850; 86900; 86901; 86920; 87040; 87070; 87081; 87086; 87205; 87493; 87804; 92950; 93005; 93306; 93970; 94002; 94003; 94640; 94761; 95819; 96361; 96365; 96375; 99291; A4618; A6257; C9113; G0378; J0330; J0461; J0610; J0696; J1815; J2248; J2250; J2270; J2543; J7060